=== PATIENT | female | born 1970 | race Caucasian/White ===

== ENCOUNTER 2019-10-04 06:17 | Emergency (ER) | payer SELFPAY ==
[~2019-10-04] VITALS: Ht 177.8 cm; Wt 181.4 kg
--- OUTSIDE RECORDS SUMMARY | 2019-10-04 06:20 | XMS REPORT ---
Author Author [facility] Organization [facility] Address [address] [place] [address] Phone Unavailable Care Team Providers Care Shank Stapler Name Role Phone Brice Andrea Unavailable Problems This patient has no known problems. Allergies, Adverse Reactions, Alerts This patient has no known allergies or adverse reactions. Medications This patient has no known medications. Procedures This patient has no known procedures. Results Test Description Test Time Test Comments Results Result Comments Source Hip Right W Con 2018-10-31 14:46:00 [place] [address] [facility]OLOG[facility] REPORT Name: SANDRA FLORES Acct Number: [id number] :1970 Age:48 Sex:F Ord Phys: Brice Andrea MD Unit Number: [id number] [address]: NONE Status: REG ER ER Exam Date: 10/31/18 EXAM DESCRIPTION: CT - Hip Right W Con - 10/31/2018 2:31 pm CLINICAL HISTORY: Right hip pain, trauma COMPARISON: Right hip films October 31 TECHNIQUE: Following nonionic IV contrast administration, axial 2 millimeter thick images the right hip joint were obtained. Sagittal and coronal reformatted images were generated and reviewed. The CT scan was performed using dose optimization techniques as appropriate to a performed exam including one or more of the following: Automated exposure control, adjustment of the mA and/or kV according to patient size (this includes techniques or standardized protocols for targeted exams where dose is matched to indication/reason for exam) and use of iterative reconstruction technique. FINDINGS: No fracture of the proximal right femur. No joint effusion or periarticular acute process. Patient has degenerative change seen as spurring along the articular margins of the acetabulum and femoral head. No AVN or focal femoral head abnormality. No hematoma, mass or other suspicious soft tissue finding along the right-side pelvic floor or periarticular soft tissues. IMPRESSION: Mild degenerative change involving the acetabulum and femoral head. No fracture or acute bone finding. No periarticular hematoma, mass or suspicious soft tissue finding. Signed By: Marcello Godinez MD Signed AT: 10/31/18 1446 Basic Metabolic Panel 2018-10-31 14:03:00 Test Item Serum or plasma sodium measurement (moles/volume) (daisha t code = 2951-2) 143 mmol/L 136-145 Potassium [Moles/volume] in Serum or Plasma (test code = 282 3-3) 4.0 mmol/L 3.5-5.1 Chloride [Moles/volume] in Serum or Plasma (test code = 2075 -0) 110 mmol/L 98-107 H Carbon dioxide, total [Moles/volume] in Serum or Plasm a (test code = 8-9) 26 mmol/L 21-32 Glucose [Mass/volume] in Serum or Plasma (test code = 2345-7) 96 mg /dL 74-106 Urea nitrogen [Mass/volume] in Serum or Plasma (test code = 3094-0) 19 mg/dL 7-18 H Creatinine [Mass/volume] in Serum or Plasma (test code = 216 0-0) 0.77 mg/dL 0.55-1.3 Glomerular Filtration Rate (test code = GFR) 79 mL =/>90 L FOR CHRONIC KIDNEY DISEASE: GFR STAGE DESCRIPTION =/>90 STAGE 1 NORMAL--OR-- MINIMAL KIDNEY DAMAGE WITH NORMAL GFR 60-89 STAGE 2 MILD DECREASE IN GFR 30-59 STAGE 3 MODERATE DECREASE IN GFR 15-29 STAGE 4 SEVERE DECREASE IN GFR <15 STAGE 5 KIDNEY FAILURE The Glomerular Filtration Rate (GFR) has been calculated using the IDMS- Traceable MDRD Study Equation. Calcium [Mass/volume] in Serum or Plasma (test code = 32836- 6) 8.4 mg/dL 8.5-10.1 L Comment Bed:5Complete blood count (CBC) with automated white blood cell (WBC) [id number] 14:01:00* Test Item Value Reference Range Interpretation Comments White blood cell count (test code = API5121) 7.0 4.3-10.9 Blood erythrocytes count (number/volume) (test code = 61288- 1) 4.73 M/ul 3.86-4.86 Hemoglobin measurement (test code = XYE5310) 13.2 g/dL 12.0-15.0 Blood hematocrit (volume fraction) (test code = 64083-2) 40.6 % 36.0-45.0 MCV (test code = GSI6102) 86.0 fL 80-100 27 .8 MCHC (test code = MCHC) 32.4 g/dL 32.0-36.0 Platelets (test code = PLT) 212 152-406 Red Cell Distribution Width (test code = RDW) 15.2 % 12.1-15. 2 Blood platelet mean volume (test code = 19176-3) 8.0 fL 7.6-1 1.3 Neutrophils % (test code = QUANG%) 63.2 % 41.7-73.7 Lymphocytes/leuk NFr Bld (test code = 67473-6) 24.2 % 15.3-44 .8 Monocyte percentage (test code = 5905-5) 9.4 % 3.3-12.3 Eosinophil % (test code = 713-8) 2.6 % 0-4.4 Basophil % (test code = 43198-5) 0.6 % 0-1.3 Absolute neutrophil count (test code = 751-8) 4.4 1.8-8.0 Absolute lymphocyte count (test code = 14080-8) 1.7 0.7-4. 9 Absolute monocyte count (test code = 742-7) 0.7 0.1-1.3 Absolute Eosinophils (test code = EOA) 0.2 0-0.5 Absolute Basophils (test code = BASA) 0.0 0-0.5 Hip Right 2 [id number] 13:44:00[place] [address] [facility]OLOG[facility] REPORT Name: SANDRA FLORES Acct Number: [id number] :1970 Age:48 Sex:F Ord Phys: Brice Andrea MD Unit Number: [id number] [address] Dr: NONE Status: REG ER ER Exam Date: 10/31/18 EXAM DESCRIPTION: RAD - Hip Right 2 View - 10/31/2018 1:15 pm CLINICAL HISTORY: Trauma, right hip pain COMPARISON: None. FINDINGS: AP and frog-leg views of the right hip were obtained. There is no fracture or dislocation. No AVN or focal femoral head abnormality. Mild degenerative changes involve the articular margins of the acetabulum and femoral head. No joint effusion suspected. No periarticular abnormality. IMPRESSION: Mild degenerative change of the right hip joint. No fracture or acute finding. Signed By: Marcello Godinez MD Signed AT: 10/31/18 5295
--- NOTE | 2019-10-04 06:24 | Emergency Department Note ---
History of Present Illnes History of Present Illness History of Present Illness This is a 49 year old female presents to the ED for acute on chronic b/l LEg pain of 2 months duration. Patient states that this AM her left leg became increasingly more painful. EMS contacted and enroute with multiple complaints including facial dysthesia with CP and SOB . 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: See EMS Report Customer Operations Representative Required: No Onset (how long ago): second(s) (MATTRESS FINISHER) Location: Left greater right Radiation: extremity Severity: moderate Onset quality: sudden (MATTRESS FINISHER) Duration (how long): month(s) Timing of current episode: constant Progression: worsening Chronicity: new Context: recent immobilization Relieving factors: none Exacerbating factors: none Associated symptoms: chest pain, shortness of breath Treatments prior to arrival: none (ROBBIN COBB DO) Past Medical/Family History Physician Review I have reviewed the patient's past medical and family history. Any updates have been documented here. (ROBBIN COBB DO) Past Medical History Recent Fever: No Clinical Suspicion of Infectio: No New/Unexplained Change in Ment: No Other Medical History: Anxiety (ROBBIN COBB DO) Social History Smoking Cessation: Never Smoker Alcohol Use: None Any Illegal Drug Use: No (ROBBIN COBB DO) Review of Systems Review of Systems Constitutional: no symptoms EENTM: no symptoms Cardiovascular: chest pain Respiratory: dyspnea Gastrointestinal: no symptoms Genitourinary: no symptoms Musculoskeletal: other (Left greater than right leg pain) Neurological: no symptoms Psychological: no symptoms Endocrine: no symptoms Hematological/Lymphatic: no symptoms Review of other systems All other systems reviewed and negative. (ROBBIN COBB DO) Physical Exam Related Data Allergies: Coded Allergies: No Known Allergies (Unverified , 10/04/19) Triage Vital Signs Oxygen saturation 100% RA Vital signs reviewed: Yes (ROBBIN COBB DO) Physical Exam CONSTITUTIONAL Constitutional: morbidly obese HENT HENT: normocephalic, atraumatic, oropharynx clear/moist, nose normal HENT L/R: left ext ear normal, right ext ear normal EYES Eyes: PERRL, conjunctivae normal NECK Neck: ROM normal PULMONARY Pulmonary: effort normal, breath sounds normal CARDIOVASCULAR Cardiovascular: regular rhythm, heart sounds normal, capillary refill normal, normal rate GASTROINTESTINAL Abdominal: soft, nontender, bowel sounds normal GENITOURINARY Genitourinary: exam deferred SKIN Skin: warm, dry MUSCULOSKELETAL Musculoskeletal: ROM normal NEUROLOGICAL Neurological: alert, oriented x 3, no gross motor or sensory deficits PSYCHOLOGICAL Psychological: mood/affect normal, judgement normal (ROBBIN COBB DO) Constitutional: well-nourished, obese HENT: normocephalic, atraumatic Eyes: PERRL, conjunctivae normal Neck: ROM normal Pulmonary: effort normal Cardiovascular: regular rhythm, heart sounds normal, normal rate Abdominal: soft, nontender, bowel sounds normal Genitourinary: exam deferred Skin: warm, dry Musculoskeletal: other (bilateral legs with non-pitting edema, L>R. Left knee pain with ROM, severe crepitus) Neurological: alert, oriented x 3, no gross motor or sensory deficits Psychological: mood/affect normal (ARIS SHETH MD) Results Laboratory Laboratory Laboratory Tests Test 10/04/19 06:17 White Blood Count 8.08 x10e3/uL (4.8-10.8) Red Blood Count 5.11 x10e6/uL (3.6-5.1) Hemoglobin 14.0 g/dL (12.0-16.0) Hematocrit 44.0 % (34.2-44.1) Mean Corpuscular Volume 86.1 fL (81-99) Mean Corpuscular Hemoglobin 27.4 pg (28-32) Mean Corpuscular Hemoglobin Concent 31.8 g/dL (31-35) Red Cell Distribution Width 13.7 % (11.7-14.4) Platelet Count 291 x10e3/uL (140-360) Neutrophils (%) (Auto) 61.1 % (38.7-80.0) Lymphocytes (%) (Auto) 28.8 % (18.0-39.1) Monocytes (%) (Auto) 7.2 % (4.4-11.3) Eosinophils (%) (Auto) 1.7 % (0.0-6.0) Basophils (%) (Auto) 0.7 % (0.0-1.0) Neutrophils # (Auto) 4.9 (2.1-6.9) Lymphocytes # (Auto) 2.3 (1.0-3.2) Monocytes # (Auto) 0.6 (0.2-0.8) Eosinophils # (Auto) 0.1 (0.0-0.4) Basophils # (Auto) 0.1 (0.0-0.1) Absolute Immature Granulocyte (auto 0.04 x10e3/uL (0-0.1) Sodium Level 139 mmol/L (136-145) Potassium Level 4.5 mmol/L (3.5-5.1) Chloride Level 107 mmol/L (98-107) Carbon Dioxide Level 23 mmol/L (22-29) Anion Gap 13.5 mmol/L (8-16) Blood Urea Nitrogen 11 mg/dL (7-26) Creatinine 0.76 mg/dL (0.57-1.11) Estimat Glomerular Filtration Rate > 60 ML/MIN (60-) BUN/Creatinine Ratio 14 (6-25) Glucose Level 94 mg/dL (74-118) Calcium Level 9.3 mg/dL (8.4-10.2) Total Bilirubin 0.5 mg/dL (0.2-1.2) Aspartate Amino Transf (AST/SGOT) 13 IU/L (5-34) Alanine Aminotransferase (ALT/SGPT) 16 IU/L (0-55) Alkaline Phosphatase 111 IU/L (40-150) Creatine Kinase 31 IU/L (29-168) Creatine Kinase MB 0.30 ng/mL (0-5.0) Troponin I 0.004 ng/mL (0-0.300) B-Type Natriuretic Peptide < 10.0 pg/mL (0-100) Total Protein 7.8 g/dL (6.5-8.1) Albumin 3.6 g/dL (3.5-5.0) Globulin 4.2 g/dL (2.3-3.5) Albumin/Globulin Ratio 0.9 (0.8-2.0) Lab results reviewed: Yes (ARIS SHETH MD) Imaging Imaging results reviewed: Yes Impressions CT BRAIN WO HISTORY: Headache COMPARISON: None. TECHNIQUE: Noncontrast axial scans were obtained from skull base to the vertex. Coronal and sagittal reconstructions obtained from the axial data. One or more of the following dose reduction techniques were used: Automated exposure control, adjustment of the mA and/or kV according to patient size, and/or utilization of iterative reconstruction technique. DISCUSSION: Scalp/Skull: Unremarkable. Brain sulci: Appropriate for patient's age. Ventricles: Normal in size and configuration. No hydrocephalus. Extra-axial spaces: No masses or fluid collections. Mild carotid siphon calcifications. Parenchyma: No abnormal densities. No mass, hemorrhage, or large vascular territory acute infarct. Dural sinuses: No abnormal densities. Sellar/Suprasellar region: Nonspecific enlarged empty sella. Skull base: Intact. Incidental findings: None. IMPRESSION: 1. No acute intracranial abnormalities. 2. Nonspecific empty sella. Signed by: Dr. Jared Koenig M.D. on 10/04/2019 7:29 AM Examination: Single AP view of the chest. COMPARISON: None. INDICATION: Chest pain, shortness of breath, weakness IMPRESSION: 1. Lines and Tubes: None 2. Lungs are grossly clear. No consolidation or effusion. 3. Cardiomediastinal silhouette is normal. Pulmonary vasculature is normal. 4. No acute bony abnormalities. Signed by: Dr. Koko Loera M.D. on 10/04/2019 7:36 AM Venous Doppler LE - negative for DVT (ARIS SHETH MD) Diagnostics Tests Diagnostic test(s) reviewed: Yes (ARIS SHETH MD) Procedures 12 Lead ECG Interpretation Customer Operations Representative: Interpreted by ED physician Date: October 04, 2019 Time: 06:21 Prior PRINTER ASSISTANT tracings: reviewed Rhythm: sinus rhythm Rate: normal BPM: 87 QRS axis: normal ST segments normal: Yes T waves normal: Yes Other findings: no other findings Clinical Impression: normal ECG (ROBBIN COBB DO) Critical Care Time Subsequent provider I assumed direction of critical care for this patient from another provider of my specialty. (ROBBIN COBB DO) Assessment & Plan Reassessment Reassessment time: 07:00 Reassessment Patient signed out to Dr Aris Sheth (ROBBIN COBB DO) Assessment & Plan Final Impression: (1) Knee pain (2) Weakness (3) Headache Assessment & Plan Transition of care:After a detailed discussion of the patient's case, the patient's care is assumed from the off-going emergency Dr. Cobb. I took pt's history and did focused PE (ARIS SHETH MD) Depart Disposition: HOME, SELF-CARE ROBBIN COBB DO October 04, 2019 06:24 ARIS SHETH MD October 04, 2019 08:39
--- NOTE | 2019-10-04 06:25 | NUR ---
[facility] NOTIFIED AND AWARE TO CALL OUT WELFARE PROJECT MANAGER FOR VENOUS DOPPLER.
[2019-10-04] MEDS ORDERED: ASPIRIN 81 MG CHEW TAB PO ONE (06:30)
[2019-10-04 06:32] LABS: BASOPHILS # (AUTO) 0.1 (0.0-0.1); BASOPHILS % 0.7 % (0.0-1.0); EOSINOPHILS # (AUTO) 0.1 (0.0-0.4); EOSINOPHILS % 1.7 % (0.0-6.0); LYMPHOCYTES # (AUTO) 2.3 (1.0-3.2); LYMPHOCYTES % 28.8 % (18.0-39.1); MEAN CORPUSCULAR HEMOGLOBIN 27.4 pg (28-32); MEAN CORPUSCULAR HGB CONC 31.8 g/dL (31-35); MEAN CORPUSCULAR VOLUME 86.1 fL (81-99); MONOCYTES # (AUTO) 0.6 (0.2-0.8); MONOCYTES % 7.2 % (4.4-11.3); NEUTROPHILS # (AUTO) 4.9 (2.1-6.9); NEUTROPHILS % 61.1 % (38.7-80.0); PLATELET COUNT 291 x10e3/uL (140-360); RED BLOOD COUNT 5.11 x10e6/uL (3.6-5.1); RED CELL DISTRIBUTION WIDTH 13.7 % (11.7-14.4)
[2019-10-04] MEDS ORDERED: SODIUM CHLORIDE 0.9% 1000ML 1,000 ML IV STA (06:39)
--- NOTE | 2019-10-04 06:48 | NUR ---
Report to JOHN PAUL Muller
[2019-10-04 07:03] LABS: ALANINE AMINOTRANSFERASE 16 IU/L (0-55); ALBUMIN 3.6 g/dL (3.5-5.0); ALBUMIN/GLOBULIN RATIO 0.9 (0.8-2.0); ALKALINE PHOSPHATASE 111 IU/L (40-150); ANION GAP 13.5 mmol/L (8-16); BLOOD UREA NITROGEN 11 mg/dL (7-26); BUN/CREATININE RATIO 14 (6-25); CALCIUM 9.3 mg/dL (8.4-10.2); CARBON DIOXIDE 23 mmol/L (22-29); CHLORIDE 107 mmol/L (98-107); CREATINE KINASE 31 IU/L (29-168); CREATININE, SERUM 0.76 mg/dL (0.57-1.11); EST GLOMERULAR FILTRATION RATE > 60 ML/MIN (60-); GLUCOSE 94 mg/dL (74-118); POTASSIUM 4.5 mmol/L (3.5-5.1); SODIUM 139 mmol/L (136-145)
--- NOTE | 2019-10-04 07:23 | NUR ---
PATIENT GIVEN COOL, WET RAG FOR FACE FOR COMFORT. PATIENT UPDATED ON PLAN OF CARE INCLUDING CT RESULTS AND VENOUS DOPPLER. PATIENT STATED UNDERSTANDING. REPOSITIONED FOR COMFORT AND CALL LIGHT WITHIN REACH.
--- NOTE | 2019-10-04 07:32 | Diagnostic Imaging Report ---
CT BRAIN WO HISTORY: Headache COMPARISON: None. TECHNIQUE: Noncontrast axial scans were obtained from skull base to the vertex. Coronal and sagittal reconstructions obtained from the axial data. One or more of the following dose reduction techniques were used: Automated exposure control, adjustment of the mA and/or kV according to patient size, and/or utilization of iterative reconstruction technique. DISCUSSION: Scalp/Skull: Unremarkable. Brain sulci: Appropriate for patient's age. Ventricles: Normal in size and configuration. No hydrocephalus. Extra-axial spaces: No masses or fluid collections. Mild carotid siphon calcifications. Parenchyma: No abnormal densities. No mass, hemorrhage, or large vascular territory acute infarct. Dural sinuses: No abnormal densities. Sellar/Suprasellar region: Nonspecific enlarged empty sella. Skull base: Intact. Incidental findings: None. IMPRESSION: 1. No acute intracranial abnormalities. 2. Nonspecific empty sella. Signed by: Dr. Jared Koenig M.D. on 10/04/2019 7:29 AM
--- NOTE | 2019-10-04 07:40 | Diagnostic Imaging Report ---
Examination: Single AP view of the chest. COMPARISON: None. INDICATION: Chest pain, shortness of breath, weakness IMPRESSION: 1. Lines and Tubes: None 2. Lungs are grossly clear. No consolidation or effusion. 3. Cardiomediastinal silhouette is normal. Pulmonary vasculature is normal. 4. No acute bony abnormalities. Signed by: Dr. Koko Loera M.D. on 10/04/2019 7:36 AM
[2019-10-04] MEDS ORDERED: KETOROLAC TROMETHAMINE 30 MG/ML VIAL IV STA (08:15)
[2019-10-04] MEDS ORDERED: FIORICET 50-301 EACH PO (08:42)
[2019-10-04 09:35] VITALS: BP 136/70
== END 2019-10-04 09:36 | disposition home or self-care (01) ==
LOC: ER 06:17
DX: R53.1 Weakness (principal); R51 Headache; M25.562 Pain in left knee; R60.9 Edema, unspecified
CPT/HCPCS: 36415; 70450; 71045; 80053; 82550; 82553; 83880; 84484; 85025; 93970; 99284; J1885; J7030; 93005

== ENCOUNTER 2022-06-26 21:55 | Emergency (ER) | payer OTHER ==
[~2022-06-26] VITALS: Ht 177.8 cm; Wt 181.4 kg
[~2022-06-26 21:55] MED LIST: FIORICET 50-301 EACH PO
[2022-06-26] MEDS ORDERED: IBUPROFEN 600 MG TAB PO STA (23:01)
[2022-06-27] MEDS ORDERED: NAPROSYN500 MG PO (00:40)
[2022-06-27] MEDS ORDERED: CYCLOBENZAPRINE5 MG PO (00:40)
== END 2022-06-27 00:44 | disposition home or self-care (01) ==
LOC: ER 22:13
DX: M54.2 Cervicalgia (principal); M54.6 Pain in thoracic spine; M54.50 Low back pain, unspecified; M25.531 Pain in right wrist; M25.562 Pain in left knee; M25.561 Pain in right knee; W06.XXXA Fall from bed, initial encounter; Y92.89 Other specified places as the place of occurrence of the external cause; I50.9 Heart failure, unspecified; F41.9 Anxiety disorder, unspecified
CPT/HCPCS: 72040; 72070; 72100; 99283